=== PATIENT | female | born 2000 | race Caucasian/White ===

== ENCOUNTER 2023-05-28 10:24 | Emergency (ER) | payer BC, SELFPAY ==
[2023-05-28 10:36] VITALS: BP 116/73; BP 130/80; PULSE 83; PULSE 95; RESP 14; TEMP 36.7; O2SAT 97; O2SAT 99; BMI 23.8
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
--- NOTE | 2023-05-28 10:47 | ED_ITS ---
HPI - Psych General Chief Complaint: Psychiatric Symptoms Stated Complaint: SI PER EMS Source: patient Mode of arrival: EMS Limitations: no limitations History of Present Illness HPI Narrative: 22 yo female with PMH of depression prior attempts and self harm tendencies denies going inpatient in the past. She comes in today with c/o getting home from work and plans to either slam head into a wall, cut herself, or jump off of a bridge. MD complaint: suicidal ideation and feels depressed Onset (ago): day(s) (2) Duration: getting worse History of same: Yes Relieving factors: none Exacerbating factors: other Context: significant life stressor Associated psychiatric symptoms: depression and suicidal ideation Associated symptoms: denies other symptoms Treatments prior to arrival: none If self harm: admits thoughts of self harm and has plan Related Data Allergies Allergy/AdvReac Type Severity Reaction Status Date / Time adhesive Allergy Intermediate Rash Verified 05/28/23 10:36 latex Allergy Intermediate Itching Verified 05/28/23 10:36 metals Allergy Intermediate Rash Uncoded 05/28/23 10:36 Review of Systems Review of Systems: Constitutional : No Fever, No Chills ENT/Mouth : No Ear Pain, No Nasal Congestion, No sore throat Eyes: No Eye Pain, No Swelling, No Redness Cardiovascular : No Chest Pain, No SOB Respiratory : No Cough, No Sputum, No Dyspnea Gastrointestinal : No Nausea, No Vomiting, No Diarrhea, No Hematochezia, No Melena Genitourinary : No Dysuria, No Urinary Frequency, No Hematuria Musculoskeletal : No Myalgias Skin : No Skin Lesions, No rash Neuro : No Weakness, No Numbness, No Paresthesias, No Dizziness, No Headache Psych : positive Anxiety, positive Depression, positive SI no HI Heme/Lymph: No Lymphadenopathy Endocrine : No Polyuria, No Polydipsia All other systems reviewed and are negative PMF Past Medical History Attestation statement: The following information was validated with the patient. Medical History Anxiety Depression PTSD (post-traumatic stress disorder) Social History Social History Alcohol intake: current Alcohol intake frequency: holidays/special occasions only Smoked in Last 30 Days: No Use of substances other than those prescribed or required for medical reasons: Yes Substance Use Type: Marijuana Patient : No Physical Exam Vital Signs: Vital Signs: Last Vital Signs Temp 98.1 F 05/28/23 10:36 Pulse 83 05/28/23 10:36 Resp 14 05/28/23 10:36 BP 116/73 05/28/23 10:36 Pulse Ox 97 05/28/23 10:36 O2 Del Method Room Air 05/28/23 10:36 BMI result Body Mass Index 23.8 Appearance: Alert. Oriented X3. No acute distress. soft spoken, calm has a blanket and stuffy with her Eyes: Pupils equal, round and reactive to light. ENT: Pharynx normal. Neck: Normal inspection. Neck supple. CVS: Normal heart rate and rhythm. Pulses normal. Respiratory: No respiratory distress. Breath sounds normal. Abdomen: Soft and nontender. Skin: Skin warm and dry. Normal skin color. Normal skin turgor. Extremities: No lower extremity edema. No calf ttp Neuro: Oriented X 3. No motor deficit. No sensory deficit. Cn2-12 intact Medical Decision Making Medical Decision Making [facility] Narrative: 22 yo female with anxiety, PTSD and depression here with SI and plans to jump off of a bridge. At this time she is refusing labs but denies medical complaints - UA and swab ordered. CARE team consult Differential Diagnosis Differential Diagnoses: The differential diagnosis associated with the presentation includes PTSD, SI Admission/Observation Consideration of admission/observation: Escalation of care including ad mission/observation considered physician observation started at 1050am until CARE team can assess patient Consult Healthcare Provider Management of the patient was discussed with: Behavioral Health Provider Lab Data [facility] Lab Attestation statement: I reviewed the patient's lab results. Independent Historian Clinical information obtained from an independent historian. History obtained from or confirmed by: EMS Discharge Plan Discharge Clinical Impression: Suicidal ideation Patient Disposition: Still a Patient Interventions: [place]-Suicide Risk Severity Scale Last Done: 05/28/23 10:40
--- NOTE | 2023-05-28 11:00 | PC.NURSE ---
urine/swabs obtained/sent to lab.
[2023-05-28 11:06] LABS: Appearance Urine Clear; Color Urine Dark Yellow; Glucose Urine UA Negative (Negative); Leukocyte Esterase Urine Moderate (2+) (Negative); Nitrite Urine Negative (Negative); Specific Gravity - Urine 1.025 (1.005-1.025); UMIC TRIGGER UACC YES; Urine Blood Negative (Negative); Urine Ketones Negative (Negative); Urine Protein Trace mg/dL (Neg-Trace)
[2023-05-28 11:07] LABS: UPreg QC Valid YES; Urine Pregnancy NEGATIVE (NEGATIVE)
[2023-05-28 11:08] LABS: Bacteria Urine 1+ (None Seen); Hyaline Casts Urine 0-2 /LPF (0-2); RBC Urine 0-2 /HPF (0-2); UACC Culture Trigger YES; WBC Urine 21-50 /HPF (0-5)
[2023-05-28 11:17] LABS: Amphetamine Screen Urine Not Detected (Not Detect); Barbiturates, Urine Not Detected (Not Detect); Benzodiazepines Screen Urine Not Detected (Not Detect); Cannabinoid Screen Urine Not Detected (Not Detect); Cocaine Screen Urine Not Detected (Not Detect); Fentanyl, urine Not Detected (Not Detect); Opiate Screen Urine Not Detected (Not Detect); Phencyclidine Screen Urine Not Detected (Not Detect)
[2023-05-28 11:49] LABS: Influenza A PCR NEGATIVE (Negative); Influenza B PCR NEGATIVE (Negative); Resp Syncy Virus RNA Qual PCR NEGATIVE (Negative); SARS COV2 PCR INHOUSE NEGATIVE (Negative)
--- NOTE | 2023-05-28 15:29 | PC.NURSE ---
this RN assumed care of pt, pt walking around in milieu at this time, requesting food. pt given jello per request. pt calm and cooperative at this time. Awaiting care team consult, plan of care continues.
--- NOTE | 2023-05-28 16:32 | PC.NURSE ---
[facility]ry[facility] at bedside meeting with pt to discuss care plan.
[2023-05-28] MEDS: Escitalopram Oxalate 10 MG TABLET PO (18:12)
--- NOTE | 2023-05-28 19:06 | PC.NURSE ---
Assumed care of patient at 1900, patient appears to be resting on bed, respirations even and unlabored, no apparent distress. Continue plan of care for CARE team assessment
[2023-05-28] MEDS: Ibuprofen 400 MG TABLET PO (20:17)
[2023-05-28] MEDS: LORazepam 0.5 MG TABLET PO (20:17)
--- NOTE | 2023-05-29 07:28 | MHC.CARE ---
RAD Team made referrals for pt at [facility], [facility] and [facility] as well as [facility]. RAD team to f/u with facilities for timeline and for confirmation of reciept
== END 2023-05-28 20:33 | disposition home or self-care (01) ==
PROVIDERS: Emergency Medicine; Emergency Provider Emergency Medicine Emergency Medical Services; PCP Internal Medicine
DX: R45.851 Suicidal ideations (principal); F41.9 Anxiety disorder, unspecified; R51.9 Headache, unspecified; Z56.6 Other physical and mental strain related to work; Z91.52 Personal history of nonsuicidal self-harm; Z11.52 Encounter for screening for COVID-19; Z20.828 Contact with and (suspected) exposure to other viral communicable diseases
CPT/HCPCS: 0241U; 80307; 81001; 81003; 81025; 87086; 99285; S9485